=== PATIENT | male | born 1940 | race Hispanic/Latino ===

== ENCOUNTER 2016-07-28 09:31 | Outpatient (CLI) | payer MEDICARE ==
--- NOTE | 2016-07-28 11:37 | Ultrasound Report ---
Renal ultrasound: Chronic renal disease. The renal length is 11.4 cm. The left renal length is 11.7 cm. Both kidneys demonstrate increased echogenicity. No hydronephrosis and no focal mass identified. A minimally shadowing 8.4 mm hypodensity is present in the mid anterior left kidney. Imaging of the urinary bladder is limited but grossly normal. Impressions: 1. Echogenic kidneys consistent with medical renal disease. 2. Suspicion of nonobstructing left renal calculus.
== END 2016-07-28 09:32 | disposition home or self-care (01) ==
LOC: US 09:31
PROVIDERS: ATTEND Specialist
DX: N18.3 Chronic kidney disease, stage 3 (moderate) (principal)
CPT/HCPCS: 76770